=== PATIENT | male | born 1945 | race Caucasian/White ===

== ENCOUNTER 2021-04-09 10:50 | Emergency (ER) | payer MEDICARE, BC ==
[2021-04-09] MEDS ORDERED: Sodium Chloride 0.9% 10 ML Syringe FLUSH PRN (11:03)
[2021-04-09 12:06] LABS: CORONAVIRUS COVID-19 NAA NEGATIVE (NEGATIVE)
[2021-04-09] MEDS ORDERED: Iopamidol 755 Mg/ML 100 ML Bottle IVPUSH ONE (12:08)
[2021-04-09] MEDS ORDERED: Sodium Chloride 0.9% 100 ML IV SCH (12:15)
[2021-04-09 12:57] VITALS: BP 138/79; PULSE 90
== END 2021-04-09 14:30 | disposition home or self-care (01) ==
LOC: JD.ED 10:50
DX: I49.1 Atrial premature depolarization (principal); R00.2 Palpitations; D64.9 Anemia, unspecified; Z79.82 Long term (current) use of aspirin; Z79.899 Other long term (current) drug therapy; Z79.84 Long term (current) use of oral hypoglycemic drugs; Z20.822 Contact with and (suspected) exposure to COVID-19
CPT/HCPCS: 0240U; 36415; 71045; 71275; 80053; 82009; 82800; 83930; 84484; 85025; 85379; 93005; 93225; 93226; 99285; Q9967

== ENCOUNTER 2021-10-29 20:04 | Emergency (ER) | payer MEDICARE, BC ==
[2021-10-29 20:35] VITALS: BP 138/68; PULSE 65
[2021-10-29] MEDS ORDERED: Lidocaine 1% 10 ML MDV INJECT ONE (20:42)
[2021-10-29] MEDS ORDERED: Diphtheria,Pertussis(Acell),Tetanus Vaccine 0.5 ML Syringe IM ONE (20:42)
== END 2021-10-29 22:12 | disposition home or self-care (01) ==
LOC: JD.ED 20:04
DX: S61.112A Laceration without foreign body of left thumb with damage to nail, initial encounter (principal); Z23 Encounter for immunization; E11.9 Type 2 diabetes mellitus without complications; I10 Essential (primary) hypertension; E78.00 Pure hypercholesterolemia, unspecified; Z79.84 Long term (current) use of oral hypoglycemic drugs; Z79.899 Other long term (current) drug therapy; W45.8XXA Other foreign body or object entering through skin, initial encounter
CPT/HCPCS: 12001; 90471; 90715; 99282-25; 99283

== ENCOUNTER 2024-03-05 07:21 | Day surgery (SDC) | payer MEDICARE, BC ==
[~2024-03-05 07:21] MED LIST: Lidocaine 1% 4 ML ONE; Propofol 200 MG/20 ML SDV ONE
[2024-03-05] MEDS: Lactated Ringers 1,000 ML IV SCH (07:45)
[2024-03-05 10:04] VITALS: BP 134/66; PULSE 78
== END 2024-03-05 09:52 | disposition home or self-care (01) ==
LOC: JD.SDS 07:21
PROVIDERS: ATTEND Surgery
DX: D12.5 Benign neoplasm of sigmoid colon (principal); D12.8 Benign neoplasm of rectum; K22.70 Barrett's esophagus without dysplasia; K44.9 Diaphragmatic hernia without obstruction or gangrene; K64.8 Other hemorrhoids; E11.9 Type 2 diabetes mellitus without complications; I10 Essential (primary) hypertension; E78.5 Hyperlipidemia, unspecified; K21.9 Gastro-esophageal reflux disease without esophagitis; Z87.891 Personal history of nicotine dependence; Z79.84 Long term (current) use of oral hypoglycemic drugs; Z79.899 Other long term (current) drug therapy
CPT/HCPCS: 43239; 45380; 88305; J2704; J7120; 00813; 99100; J3490

== ENCOUNTER 2024-10-13 06:45 | Day surgery (SDC) | payer MEDICARE, BC ==
[~2024-10-13 06:45] MED LIST changes: -Lidocaine 1% 4 ML ONE; -Propofol 200 MG/20 ML SDV ONE; +Sodium Chloride 0.9% 10 ML Syringe FLUSH PRN; +Sodium Chloride 0.9% 10 ML Syringe FLUSH SCH
[2024-10-13] MEDS ORDERED: Ondansetron 4 MG/2 ML SDV ONE (06:52)
[2024-10-13] MEDS ORDERED: fentaNYL 100 MCG/2 ML SDV ONE (06:52)
[2024-10-13] MEDS ORDERED: Propofol 200 MG/20 ML SDV ONE (06:52)
[2024-10-13] MEDS ORDERED: Lidocaine 1% 4 ML ONE (06:52)
[2024-10-13] MEDS ORDERED: Ropivacaine 0.5% 5 MG/ML 30 ML SDV ONE (06:53)
[2024-10-13] MEDS ORDERED: Midazolam 1 MG/ML 2 ML SDV ONE (06:53)
[2024-10-13] MEDS: Lactated Ringers 1,000 ML IV SCH (07:00)
[2024-10-13] MEDS ORDERED: Lactated Ringers 1,000 ML ONE (07:59)
[2024-10-13] MEDS ORDERED: Ondansetron 4 MG/2 ML SDV IVPUSH PRN (09:42)
[2024-10-13] MEDS: fentaNYL 100 MCG/2 ML SDV IVPUSH PRN (10:10)
[2024-10-13] MEDS: Acetaminophen/HYDROcodone 325-5 MG Tab PO PRN (11:33)
[2024-10-13 13:22] VITALS: BP 150/74; PULSE 77
== END 2024-10-13 13:00 | disposition home or self-care (01) ==
LOC: JD.SDS 06:45
PROVIDERS: ATTEND Orthopaedic Surgery
DX: M19.011 Primary osteoarthritis, right shoulder (principal); I10 Essential (primary) hypertension; E11.9 Type 2 diabetes mellitus without complications; E78.5 Hyperlipidemia, unspecified; I25.10 Atherosclerotic heart disease of native coronary artery without angina pectoris; E66.9 Obesity, unspecified; M85.821 Other specified disorders of bone density and structure, right upper arm; Z68.32 Body mass index [BMI] 32.0-32.9, adult; Z87.891 Personal history of nicotine dependence; Z79.84 Long term (current) use of oral hypoglycemic drugs; Z79.899 Other long term (current) drug therapy
CPT/HCPCS: 23472; 64415; 76000; 97110; 97161; 97530; A9270; C1713; C1769; C1776; J0690; J2003; J2250; J2405; J2704; J2795; J3010; J3373; J7120; J0665; J3490